=== PATIENT | female | born 1990 ===

== ENCOUNTER 2020-02-11 21:42 | Emergency (ER) | payer MEDICAID ==
[~2020-02-11] VITALS: Ht 170.2 cm; Wt 49.9 kg
--- NOTE | 2020-02-11 21:50 | NUR ---
admitted pt to [facility], bib ra found pt in the car w/ altered mental status, talking & moving rapidly. dr pompa will see & evalute pt.
[2020-02-11] MEDS ORDERED: OLANZAPINE 10 MG VIAL IM ONE ×2 (21:51→22:00)
--- NOTE | 2020-02-11 21:52 | NUR ---
zyprexia 10mg given im on left outer quadrant of buttocks as ordered.
--- NOTE | 2020-02-11 21:56 | NUR ---
Note angel in ED - 02/11/20 at 2242 by RVIDAL admitted to [facility], felice meneses found pt in the car w/ altered mental status.talking & moving rapidly. dr pompa will see & evaluate pt.
[2020-02-11 22:06] LABS: BASOPHILS % (AUTO) 0.4 % (0.0-2.0); EOSINOPHILS # (AUTO) 0.3 K/uL (0.0-0.7); EOSINOPHILS % (AUTO) 2.8 % (0.0-7.0); HEMATOCRIT 34.4 % (31.2-41.9); HEMOGLOBIN 11.7 g/dL (10.9-14.3); LYMPHOCYTES # (AUTO) 1.9 K/uL (20.0-40.0); LYMPHOCYTES % (AUTO) 18.6 % (20.5-51.5); MEAN CORPUSCULAR HEMOGLOBIN 29.1 uug (24.7-32.8); MEAN CORPUSCULAR HGB CONC 34 g/dL (32.3-35.6); MEAN CORPUSCULAR VOLUME 85.8 fL (75.5-95.3); MONOCYTES # (AUTO) 1.2 K/uL (2.0-10.0); MONOCYTES % (AUTO) 11.6 % (0.0-11.0); NEUTROPHILS # (AUTO) 6.9 K/uL (1.8-8.9); NEUTROPHILS % (AUTO) 66.6 % (38.5-71.5); PLATELET COUNT (AUTO) 327 K/uL (179-408); RED BLOOD CELL COUNT(AUTO) 4.01 MIL/uL (3.63-4.92); WHITE BLOOD COUNT (AUTO) 10.3 K/uL (3.8-11.8)
[2020-02-11 22:21] LABS: ALANINE AMINOTRANSFERASE 31 U/L (14-59); ALKALINE PHOSPHATASE 47 U/L (50-136); ASPARTATE AMINOTRANSFERASE 22 U/L (15-37); BILIRUBIN,DIRECT 0.1 mg/dL (0.0-0.2); BILIRUBIN,TOTAL 0.6 mg/dL (0.2-1.0); CARBON DIOXIDE 27 mmol/L (21-32); CHLORIDE 105 mmol/L (98-107); CREATININE 0.8 mg/dL (0.6-1.3); GLUCOSE 86 mg/dL (74-106); POTASSIUM 3.8 mmol/L (3.5-5.1); UREA NITROGEN, BLOOD 15 mg/dL (7-18)
[2020-02-11 22:22] LABS: ACETAMINOPHEN < 2.0 ug/mL (10-30)
[2020-02-11 22:27] LABS: ETHANOL < 3 MG/DL (0-0)
[2020-02-11 22:29] LABS: THYROID STIMULATING HORMONE 1.807 mIU/mL (0.358-3.740)
--- NOTE | 2020-02-11 22:45 | NUR ---
pt is sleeping w/ both siderails elevated. watched closely.
--- NOTE | 2020-02-12 | NUR ---
v/s stable. not in any distress. resting quitely.
--- NOTE | 2020-02-12 02:00 | NUR ---
pt remains sleeping. not in any distress.
--- NOTE | 2020-02-12 04:00 | NUR ---
remains sleeping. v/s stable.
--- NOTE | 2020-02-12 05:56 | NUR ---
remains sleeping. not in any distress.
--- NOTE | 2020-02-12 07:10 | NUR ---
PT awake and alert, able to make needs known. Walked w/ steady gait back to bed.
--- NOTE | 2020-02-12 07:12 | NUR ---
report given to meri robledo.
--- NOTE | 2020-02-12 07:48 | NUR ---
Dr Lerner at the bedside for Re eval.
--- NOTE | 2020-02-12 08:00 | NUR ---
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
[2020-02-12 08:46] VITALS: BP 97/51
--- NOTE | 2020-02-12 08:47 | NUR ---
Patient given written and verbal discharge instructions. Patient verbalizes understanding of instructions. Patient is ambulatory with steady gait. Refuses offer of skilled nursing placement. Patient given list of available shelters in surrounding area.
== END 2020-02-12 08:48 | disposition home or self-care (01) ==
LOC: ER 21:47 → EDBD 21:47 → ER 02-12 08:48
DX: F15.129 Other stimulant abuse with intoxication, unspecified (principal); R45.1 Restlessness and agitation; F20.9 Schizophrenia, unspecified; Z88.8 Allergy status to other drugs, medicaments and biological substances; F29 Unspecified psychosis not due to a substance or known physiological condition
CPT/HCPCS: 36415; 80048; 80076; 80307; 80329; 84443; 85025; 93005; 96372; 99284; G0480; A4663; J2358